=== PATIENT | female | born 1945 | race Caucasian/White ===

== ENCOUNTER 2020-08-31 12:19 | Emergency (ER) | payer MEDICARE ==
[2020-08-31] MEDS ORDERED: PANTOPRAZOLE 40 MG/10 ML VIAL IVP STA (12:58)
[2020-08-31] MEDS ORDERED: SODIUM CHLORIDE 0.9% 1,000 ML IV STA (12:58)
--- NOTE | 2020-08-31 13:00 | ED ---
General Adult HPI - General Chief complaint: Abdominal Pain Stated complaint: lt sided abd pain Time Seen by Provider: 08/31/20 12:39 Source: patient Mode of arrival: ambulatory Limitations: no limitations - History of Present Illness Initial comments: Patient is a pleasant 74-year-old female presenting to the emergency Department with complaints of abdominal discomfort. Onset of symptoms was a couple of days ago. Symptoms have been intermittent. Symptoms are mild at this time and does not need any medication for. Discomfort is left upper abdomen. Patient at times when he gets worse feels warm. Otherwise patient has not had fever. No nausea vomiting. No constipation. Patient has had increase in stools, normally once daily is now 3-4 times daily. No back pain. - Related Data Home Medications Medication Instructions Recorded Confirmed ALPRAZolam [Xanax] 0.25 mg PO HS 10/07/16 10/07/16 Cholecalciferol [Vitamin D3] 1,000 unit PO DAILY 10/07/16 10/07/16 Ibuprofen [Advil] 400 - 600 mg PO Q8HR PRN 10/07/16 10/07/16 Meloxicam [Mobic] 15 mg PO Q72H PRN 10/07/16 10/07/16 Multivitamins, Thera [Multivitamin] 1 tab PO DAILY 10/07/16 10/07/16 Previous Rx's Medication Instructions Recorded Meloxicam [Mobic] 7.5 mg PO DAILY #30 tab 10/07/16 Morphine Sulfate ER [Ms Contin] 15 mg PO Q8H #30 tab 10/07/16 predniSONE 50 mg PO DAILY #5 tab 10/07/16 Allergies Allergy/AdvReac Type Severity Reaction Status Date / Time meperidine [From Demerol] Allergy Severe Anaphylaxis Verified 08/31/20 12:37 Penicillins Allergy Diarrhea Verified 08/31/20 12:37 Review of Systems ROS Statement: Those systems with pertinent positive or pertinent negative responses have been documented in the HPI. ROS Other: All systems not noted in ROS Statement are negative. Constitutional: Denies: fever, chills Eyes: Denies: eye pain ENT: Denies: ear pain Respiratory: Denies: cough Cardiovascular: Denies: chest pain Endocrine: Denies: fatigue Gastrointestinal: Reports: as per HPI, abdominal pain. Denies: nausea, vomiting Genitourinary: Reports: frequency. Denies: dysuria Musculoskeletal: Denies: back pain Skin: Denies: rash Neurological: Denies: weakness Past Medical History Past Medical History: Cancer Additional Past Medical History / Comment(s): chronic back pain thoracic fracture History of Any Multi-Drug Resistant Organisms: None Reported Past Surgical History: Breast Surgery Past Psychological History: No Psychological Hx Reported Smoking Status: Never smoker Past Alcohol Use History: Rare Past Drug Use History: None Reported General Exam Limitations: no limitations General appearance: alert, in no apparent distress Head exam: Present: normocephalic Eye exam: Present: normal appearance Neck exam: Present: normal inspection Respiratory exam: Present: normal lung sounds bilaterally. Absent: chest wall tenderness Cardiovascular Exam: Present: regular rate, normal rhythm Expanded Peripheral pulses: 2+: Radial (R), Radial (L), Dorsalis Pedis (R), Dorsalis Pedis (L) GI/Abdominal exam: Present: soft, tenderness (Mild tenderness left upper quadrant), normal bowel sounds. Absent: distended, guarding, rebound, rigid, p ulsatile mass Extremities exam: Present: normal inspection. Absent: pedal edema, calf tenderness Back exam: Present: normal inspection. Absent: CVA tenderness (R), CVA tenderness (L) Neurological exam: Present: alert Psychiatric exam: Present: normal affect, normal mood Skin exam: Present: normal color Course Vital Signs 08/31/20 08/31/20 12:31 14:00 Temperature 99.3 F Pulse Rate 112 H 71 Respiratory 16 18 Rate Blood Pressure 149/82 156/69 O2 Sat by Pulse 98 98 Oximetry EKG Findings - EKG Comments: EKG Findings:: Rhythm 96. PA 128. QRS 74. QT 336. QTc 424. Normal axis. LVH. Inferior Q waves. No acute ST change. Medical Decision Making - Medical Decision Making Patient reevaluated and resting comfortably in bed. Patient updated on results and need for follow-up as well as concern for renal mass. - Lab Data Result diagrams: 08/31/20 13:08/31/20 13: Lab Results 08/31/20 08/31/20 08/31/20 Range/Units 13:01 13:01 13:01 WBC 7.6 (3.8-10.6) k/uL RBC 5.49 H (3.80-5.40) m/uL Hgb 16.3 H (11.4-16.0) gm/dL Hct 49.3 H (34.0-46.0) % MCV 89.7 (80.0-100.0) fL MCH 29.6 (25.0-35.0) pg MCHC 33.0 (31.0-37.0) g/dL RDW 12.4 (11.5-15.5) % Plt Count 304 (150-450) k/uL MPV 7.0 Neutrophils % 65 % Lymphocytes % 26 % Monocytes % 5 % Eosinophils % 1 % Basophils % 1 % Neutrophils # 4.9 (1.3-7.7) k/uL Lymphocytes # 2.0 (1.0-4.8) k/uL Monocytes # 0.4 (0-1.0) k/uL Eosinophils # 0.1 (0-0.7) k/uL Basophils # 0.1 (0-0.2) k/uL PT 10.8 (9.0-12.0) sec INR 1.1 (<1.2) APTT 26.5 (22.0-30.0) sec Sodium (137-145) mmol/L Potassium (3.5-5.1) mmol/L Chloride (98-107) mmol/L Carbon Dioxide (22-30) mmol/L Anion Gap mmol/L BUN (7-17) mg/dL Creatinine (0.52-1.04) mg/dL Est GFR (CKD-EPI)AfAm (>60 ml/min/1.73 sqM) Est GFR (CKD-EPI)NonAf (>60 ml/min/1.73 sqM) Glucose (74-99) mg/dL Calcium (8.4-10.2) mg/dL Total Bilirubin (0.2-1.3) mg/dL AST (14-36) U/L ALT (4-34) U/L Alkaline Phosphatase (38-126) U/L Troponin I (0.000-0.034) ng/mL Total Protein (6.3-8.2) g/dL Albumin (3.5-5.0) g/dL Amylase (30-110) U/L Lipase (23-300) U/L Urine Color Yellow Urine Appearance Clear (Clear) Urine pH 6.0 (5.0-8.0) Ur Specific Reform 1.017 (1.001-1.035) Urine Protein Negative (Negative) Urine Glucose (UA) Negative (Negative) Urine Ketones Negative (Negative) Urine Blood Trace H (Negative) Urine Nitrite Negative (Negative) Urine Bilirubin Negative (Negative) Urine Urobilinogen <2.0 (<2.0) mg/dL Ur Leukocyte Esterase Moderate H (Negative) Urine RBC 2 (0-5) /hpf Urine WBC 2 (0-5) /hpf Ur Squamous Epith Cells 2 (0-4) /hpf Urine Mucus Few H (None) /hpf 08/31/20 08/31/20 Range/Units 13:01 13:01 WBC (3.8-10.6) k/uL RBC (3.80-5.40) m/uL Hgb (11.4-16.0) gm/dL Hct (34.0-46.0) % MCV (80.0-100.0) fL MCH (25.0-35.0) pg MCHC (31.0-37.0) g/dL RDW (11.5-15.5) % Plt Count (150-450) k/uL MPV Neutrophils % % Lymphocytes % % Monocytes % % Eosinophils % % Basophils % % Neutrophils # (1.3-7.7) k/uL Lymphocytes # (1.0-4.8) k/uL Monocytes # (0-1.0) k/uL Eosinophils # (0-0.7) k/uL Basophils # (0-0.2) k/uL PT (9.0-12.0) sec INR (<1.2) APTT (22.0-30.0) sec Sodium 138 (137-145) mmol/L Potassium 5.0 (3.5-5.1) mmol/L Chloride 106 (98-107) mmol/L Carbon Dioxide 21 L (22-30) mmol/L Anion Gap 11 mmol/L BUN 12 (7-17) mg/dL Creatinine 0.61 (0.52-1.04) mg/dL Est GFR (CKD-EPI)AfAm >90 (>60 ml/min/1.73 sqM) Est GFR (CKD-EPI)NonAf >90 (>60 ml/min/1.73 sqM) Glucose 103 H (74-99) mg/dL Calcium 9.7 (8.4-10.2) mg/dL Total Bilirubin 1.3 (0.2-1.3) mg/dL AST 52 H (14-36) U/L ALT 29 (4-34) U/L Alkaline Phosphatase 74 (38-126) U/L Troponin I <0.012 (0.000-0.034) ng/mL Total Protein 8.2 (6.3-8.2) g/dL Albumin 4.9 (3.5-5.0) g/dL Amylase 57 (30-110) U/L Lipase 84 (23-300) U/L Urine Color Urine Appearance (Clear) Urine pH (5.0-8.0) Ur Specific Reform (1.001-1.035) Urine Protein (Negative) Urine Glucose (UA) (Negative) Urine Ketones (Negative) Urine Blood (Negative) Urine Nitrite (Negative) Urine Bilirubin (Negative) Urine Urobilinogen (<2.0) mg/dL Ur Leukocyte Esterase (Negative) Urine RBC (0-5) /hpf Urine WBC (0-5) /hpf Ur Squamous Epith Cells (0-4) /hpf Urine Mucus (None) /hpf - Radiology Data Radiology results: report reviewed (Computed tomography scan abdomen pelvis shows mass lower pole right kidney, possible renal cell carcinoma. No evidence for metastatic disease. No acute abdominal process) Disposition Clinical Impression: Abdominal pain, Renal mass Disposition: HOME SELF-CARE Condition: Stable Instructions (If sedation given, give patient instructions): Abdominal Pain (ED ) Additional Instructions: Please follow-up with primary care physician in the next day or 2 for recheck. Please also follow-up with urology, number given. Return for increased pain, fevers, worsening change in symptoms or other concerns. Is patient prescribed a controlled substance at d/c from ED?: No Referrals: Ryan Barros MD [Primary Care Provider] - 1-2 days Kobi Hicks MD [STAFF PHYSICIAN] - 1-2 days Time of Disposition: 15:03
[2020-08-31 13:29] LABS: Basophils # (A) 0.1 k/uL (0-0.2); Basophils % (A) 1 %; Eosinophils # (A) 0.1 k/uL (0-0.7); Eosinophils % (A) 1 %; HCT 49.3 % (34.0-46.0); HGB 16.3 gm/dL (11.4-16.0); Lymphocytes % (A) 26 %; MCH 29.6 pg (25.0-35.0); MCV 89.7 fL (80.0-100.0); Monocytes # (A) 0.4 k/uL (0-1.0); Monocytes % (A) 5 %; Neutrophils # (A) 4.9 k/uL (1.3-7.7); Neutrophils % (A) 65 %; Platelet Count 304 k/uL (150-450); RBC 5.49 m/uL (3.80-5.40); RDW 12.4 % (11.5-15.5); WBC 7.6 k/uL (3.8-10.6)
[2020-08-31 13:37] LABS: INR 1.1 (<1.2); Partial Thromboplastin Time 26.5 sec (22.0-30.0); Prothrombin Time 10.8 sec (9.0-12.0)
[2020-08-31 14:00] LABS: ALT 29 U/L (4-34); African American GFR (CKD) >90 (>60 ml/min/1.73 sqM); Albumin 4.9 g/dL (3.5-5.0); Amylase 57 U/L (30-110); Anion Gap 11 mmol/L; Appearance,Urine Clear (Clear); Bilirubin,Urine Negative (Negative); Blood Urea Nitrogen 12 mg/dL (7-17); Blood,Urine Trace (Negative); Calcium 9.7 mg/dL (8.4-10.2); Carbon Dioxide 21 mmol/L (22-30); Chloride 106 mmol/L (98-107); Color,Urine Yellow; Glucose 103 mg/dL (74-99); Glucose,Urine (UA) Negative (Negative); Ketones,Urine Negative (Negative); Leukocyte Esterase,Urine Moderate (Negative); Lipase 84 U/L (23-300); Mucus,Urine Few /hpf; Nitrite,Urine Negative (Negative); Non-African American GFR(CKD) >90 (>60 ml/min/1.73 sqM); Protein,Urine Negative (Negative); RBC,Urine 2 /hpf (0-5); Sodium 138 mmol/L (137-145); Specific Gravity,Urine 1.017 (1.001-1.035); Squamous Epithelial Cell,Urine 2 /hpf (0-4); Total Bilirubin 1.3 mg/dL (0.2-1.3); Total Protein 8.2 g/dL (6.3-8.2); Urobilinogen,Urine <2.0 mg/dL (<2.0); WBC,Urine 2 /hpf (0-5)
[2020-08-31 14:11] VITALS: RESP 18
[2020-08-31 14:14] LABS: AST 52 U/L (14-36); Alkaline Phosphatase 74 U/L (38-126)
--- NOTE | 2020-08-31 14:49 | CT ---
EXAMINATION TYPE: CT abdomen pelvis w con DATE OF EXAM: 08/31/2020 COMPARISON: 09/27/2013 HISTORY: LUQ pain CT DLP: 1454 mGycm CONTRAST: CT scan of the abdomen and pelvis is performed without Oral Contrast and with IV Contrast, patient in jected with 100 mL of Isovue 300. FINDINGS: LUNG BASES-: No visible nodule. No infiltrate. LIVER/GB: No calcified gallstones. Fatty liver. Simple cyst posterior segment right hepatic lobe. B iliary tree is of normal caliber. PANCREAS: No inflammation. No distinct mass. SPLEEN: No splenic enlargement. No lesion seen. ADRENALS: No nodule. No thickening. KIDNEYS/BLADDER: No hydronephrosis. No nephrolithiasis. There is an mass lower pole right kidney me asuring 3.9 by approximately 3.1 cm with central necrosis. This is felt to reflect renal cell carcino ma until proven otherwise. Parapelvic cysts are noted bilaterally. Urinary bladder grossly unremarkab le. BOWEL: Normal appendix. Normal bowel caliber. No inflammation. Sliding-type hiatal hernia noted. GENITAL ORGANS: No gross abnormality. LYMPH NODES: No greater than 1cm abdominal or pelvic lymph nodes are appreciated. AORTA: No significant abnormality. OSSEOUS STRUCTURES: Superior endplate compression fracture of L1 appears to be nonacute. Mild bony re tropulsion is noted measuring 3.8 cm. OTHER: No significant additional abnormality is seen. IMPRESSION: 1. Mass lower pole right kidney is felt to reflect renal cell carcinoma until proven otherwise. Genit ourinary consult recommended. No definite evidence for metastatic disease on this examination. 2. Mild fatty liver. 3. No acute intra-abdominal process. 4. Chronic appearing superior endplate fracture of L1.
[2020-08-31 15:44] VITALS: BP 180/100; PULSE 102; TEMP 98.8
== END 2020-08-31 15:44 | disposition home or self-care (01) ==
LOC: EC 12:19
DX: N28.89 Other specified disorders of kidney and ureter (principal); Z79.899 Other long term (current) drug therapy; Z88.0 Allergy status to penicillin; Z88.5 Allergy status to narcotic agent
CPT/HCPCS: 36415; 93005; 80053; 82150; 83690; 84484; 85025; 85610; 85730; 81001; 74177; 99284; 96374; 96361 ×2; C9113; Q9967

== ENCOUNTER → 2020-10-26 | Outpatient (CLI) | payer MEDICARE ==
[2020-10-26 16:21] LABS: Appearance,Urine Cloudy (Clear); Bacteria,Urine Occasional /hpf; Bilirubin,Urine Negative (Negative); Blood,Urine Negative (Negative); Calcium Oxalate Crystals,Urine Rare /hpf; Color,Urine Yellow; Glucose,Urine (UA) Negative (Negative); Ketones,Urine Negative (Negative); Leukocyte Esterase,Urine Moderate (Negative); Mucus,Urine Rare /hpf; Nitrite,Urine Negative (Negative); Protein,Urine Negative (Negative); RBC,Urine 2 /hpf (0-5); Specific Gravity,Urine 1.018 (1.001-1.035); Squamous Epithelial Cell,Urine 4 /hpf (0-4); Urobilinogen,Urine <2.0 mg/dL (<2.0); WBC,Urine 14 /hpf (0-5)
--- NOTE | 2020-10-26 17:24 | XR ---
EXAMINATION TYPE: XR chest 2V DATE OF EXAM: 10/26/2020 COMPARISON: None HISTORY: 75-year-old female Z01.818 TECHNIQUE: Frontal and lateral views FINDINGS: Heart normal size. There may be some ectasia of the ascending aorta. Some strandy atelectasis or scar at the left base. No consolidation or pleural effusion. Mild degenerative disc disease and thoracic spine. IMPRESSION: There may be some ectasia or elongation of the ascending aorta. Otherwise, no acute process seen.
== END | disposition home or self-care (01) ==
LOC: LABPAT 14:48
PROVIDERS: ATTEND Urology
DX: Z01.818 Encounter for other preprocedural examination (principal); D41.01 Neoplasm of uncertain behavior of right kidney; R31.0 Gross hematuria
CPT/HCPCS: 71046; 81001; 87086

== ENCOUNTER 2020-11-02 06:17 | Inpatient (IN) | payer MEDICARE ==
[2020-10-25 08:45] VITALS: BMI 32.8
--- NOTE | 2020-10-31 22:16 | P.HPIHPCON ---
History of Present Illness H&P Date: 11/02/20 Chief Complaint: right renal mass Ms Ramirez is a 75 yo female with hx of 3.9 cm right sided renal mass in the lower pole of kidney. Discussed with her review of image is concerning for renal cell carcinoma. The option of robotic radical vs partial nephrectomy was discussed with her. Risk and benefit of each approach were discussed with her. She agreed to proceed with robotic partial nephrectomy. Discussed risk of bleeding, infection, injury to nearby organ, potential of conversion to radical nephrectomy. Discussed potential need for dialysis if radical nephrectomy is performed. I also discussed with her the risk from anesthesia. She understood all the risk and agreed to proceed. Consent for Procedure: I have explained the operation/procedure to the patient, including the risks, benefits, side effects, alternative therapies (including not receiving the proposed treatment or service), the likelihood of the patient achieving his/her goals, and potential recuperation problems for the procedure/sedation/analgesia, as well as any blood products, if indicated. I also explained to the patient the risks, benefits and side effects of the alternatives, as well as the risks related to not receiving the proposed procedure, care, treatment, or services. 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,chronic back pain thoracic fracture,left breast CA-radiation received 2013,palpitations History of Any Multi-Drug Resistant Organisms: None Reported Past Surgical History: Breast Surgery, Joint Replacement Additional Past Surgical History / Comment(s): rt knee replaced, lt lumpectomy Past Anesthesia/Blood Transfusion Reactions: No Reported Reaction Additional Past Anesthesia/Blood Transfusion Reaction / Comment(s): no hx blood transfusions Smoking Status: Never smoker - Past Family History Mother Family Medical History: Cancer Father Family Medical History: Cancer Medications and Allergies Home Medications Medication Instructions Recorded Confirmed Type ALPRAZolam [Xanax] 0.25 mg PO BID PRN 10/07/16 10/25/20 History Cholecalciferol [Vitamin D3] 4,000 unit PO DAILY 10/07/16 10/25/20 History Benazepril HCl [Lotensin] 10 mg PO BID 10/25/20 10/25/20 History Omeprazole 20 mg PO DAILY PRN 10/25/20 10/25/20 History Rosuvastatin Calcium [Crestor] 5 mg PO DAILY 10/25/20 10/25/20 History Allergies Allergy/AdvReac Type Severity Reaction Status Date / Time meperidine [From Demerol] Allergy Severe Anaphylaxis Verified 10/25/20 08:18 Penicillins Allergy Diarrhea Verified 10/25/20 08:18 Surgical - Exam - General well developed, well nourished, no distress - Eyes PERRL, normal ocular movement - Respiratory normal expansion, normal respiratory effort Assessment and Plan Assessment: 75 yo female with hx of right renal mass -OR for robotic partial nephrectomy possible radical on right
[~2020-11-02 06:17] MED LIST: CLINDAMYCIN 600 MG in DEXTROSE 5% IN WATER 50 ML IVPB PRN; GENTAMICIN 120 MG in SODIUM CHLORIDE 0.9% 100 ML IVPB PRN
[2020-11-02] MEDS ORDERED: LACTATED RINGERS 1,000 ML IV ONE ×4 (07:21→11:15)
[2020-11-02] MEDS ORDERED: LIDOCAINE 1% (10MG/ML) FOR IV START INTRADERMA ONE (07:22)
[2020-11-02] MEDS: ONDANSETRON 4 MG/2 ML VIAL ONE ×2 (07:23→14:00)
[2020-11-02] MEDS ORDERED: DEXAMETHASONE SOD PHOSPHATE 4 MG/ML 1 ML VIAL IV ONE (07:23)
[2020-11-02] MEDS ORDERED: MIDAZOLAM 2 MG/2 ML VIAL IV ONE (07:23)
[2020-11-02] MEDS ORDERED: ROCURONIUM 10 MG/ML (10 ML VIAL) IV ONE (07:30)
[2020-11-02] MEDS ORDERED: NEOSTIGMINE 1 MG/ML 10 ML VIAL ONE (07:30)
[2020-11-02] MEDS ORDERED: LIDOCAINE 1% INJ 10MG/ML (20 ML MDV) ONE (07:30)
[2020-11-02] MEDS ORDERED: MANNITOL 25% 12.5 GM/50 ML VIAL ONE (07:30)
[2020-11-02] MEDS ORDERED: PHENYLEPHRINE 10 MG/ML VIAL ONE (07:30)
[2020-11-02] MEDS ORDERED: GLYCOPYRROLATE 0.2 MG/ML 2 ML VIAL ONE (07:30)
[2020-11-02] MEDS ORDERED: PROPOFOL 10 MG/ML 20 ML VIAL IV ONE (07:30)
[2020-11-02] MEDS ORDERED: HYDROmorphone (PF) 1 MG/ML ONE (07:30)
[2020-11-02] MEDS ORDERED: MIDAZOLAM 2 MG/2 ML VIAL ONE (07:30)
[2020-11-02] MEDS ORDERED: fentaNYL (PF) 50 MCG/ML 2 ML AMP ONE (07:30)
[2020-11-02] MEDS ORDERED: SUCCINYLCHOLINE CHLORIDE 100 MG/5 ML SYR IV ONE (07:30)
[2020-11-02] MEDS ORDERED: PANTOPRAZOLE 40 MG TABLET PO PRN (07:44)
--- NOTE | 2020-11-02 12:01 | P.OP ---
Date of Procedure: 11/02/20 Preoperative Diagnosis: right renal tumor Postoperative Diagnosis: same Procedure(s) Performed: Robotic-assisted laparoscopic partial nephrectomy on the right, and intraoperative ultrasound Implants: none Anesthesia: STEPH Surgeon: Kobi Hicks Estimated Blood Loss (ml): 50 Pathology: other (Right renal tumor) Condition: stable Disposition: PACU Indications for Procedure: Ms Ramirez is a 75 yo female with hx of 3.9 cm right sided renal mass in the lower pole of kidney. Discussed with her review of image is concerning for renal cell carcinoma. The option of robotic radical vs partial nephrectomy was discussed with her. Risk and benefit of each approach were discussed with her. She agreed to proceed with robotic partial nephrectomy. Discussed risk of bleeding, infection, injury to nearby organ, potential of conversion to radical nephrectomy. Discussed potential need for dialysis if radical nephrectomy is performed. I also discussed with her the risk from anesthesia. She understood all the risk and agreed to proceed Operative Findings: Large right renal tumor Description of Procedure: The patient was taken to the operating room . General anesthesia was induced. She was prepped and draped in sterile fashion, and was placed in modified flank position . All pressure points were padded. The abdominal insufflation was achieved with the Veress needle. A 8 mm camera port was placed. Robotic trocars and licensed occupational therapy assistant ports were placed under direct vision. a 5 mm liver retractor was placed. Of note patient had significant adhesions along the lower quadrant, but was able to place the ports without taking down the adhesions. The robot was docked into place. The colon was mobilized medially by incising along the white line of Toldt. Next the duodenum was kocherized. At this time the vena cava was exposed. Next the ureter was retracted anteriorly off the psoas muscle. Dissection proceeded cranially towards the renal hilum. At this point the renal artery and the vein were dissected. There was a single artery and vein. The vessels were dissected in preparation for clamping. Next the introitus fat over the kidney was incised, and the fat was mobilized along the mid and lower pole, exposing the tumor. Using the intraoperative ultrasound the depths and the edges of the tumor were marked. Next the vessels were clamped, using 2 bulldogs on the artery and a single bulldog on the vein. Next attention was carried to the tumor the tumor was enucleated sharply using the monopolar scissors. Of note there was too small tumor thrombus, extending into the intrarenal veins, those were removed and sent with the specimen. Of note the tumor was also in close proximity to the collecting system, there was a small entry into the collecting system. After the tumor was excised the collecting system was repaired using 4-0 Vicryl. The tumor bed was closed in 2 layers using 3-0V lock for the deep layer and 2-0 V lock for the outer layer using the sliding clip technique. At this time the clamps were removed, there was no evidence of bleeding. Hemostatic agent were applied to the tumor. A 10-Armenian OTONIEL was placed through the progress. The drain was secured using 2-0 silk. The robot was then de-docked and the specimen was then removed by extending the licensed occupational therapy assistant port. Fascia was closed with one layer using 0 Vicryl Skin was closed with subcuticular sutures and dermabond. The patient was awoken from general anesthesia in stable condition. Please refer to the final pathology report for final diagnosis
[2020-11-02] MEDS: HYDROmorphone 1 MG/ML 1 ML SYRINGE IVP ONE ×2 (12:18→12:23)
[2020-11-02] MEDS: KETOROLAC 15 MG/ML 1 ML VIAL IVP SCH ×3 (12:19→23:10)
[2020-11-02] MEDS: ATORVASTATIN 10 MG TAB PO SCH (14:49)
[2020-11-02] MEDS: HEPARIN SODIUM,PORCINE 5,000 UNIT/ML 1 ML VIAL SQ SCH ×3 (14:49→23:10)
[2020-11-02] MEDS: lisinopriL 20 MG TAB PO SCH (14:50)
[2020-11-02] MEDS: D5-0.45% NACL WITH KCL 20MEQ/L 1,000 ML IV SCH (15:50)
[2020-11-02] MEDS ORDERED: ARTIFICIAL TEARS-HYPROMELLOSE DROPS 15 ML BTL BOTH EYES PRN (18:59)
[2020-11-02] MEDS: ALPRAZolam 0.25 MG TAB PO PRN (23:11)
[2020-11-03] MEDS: HYDROcodone/APAP 5-325MG 1 EACH TAB PO PRN ×5 (00:37→19:47)
[2020-11-03] MEDS: KETOROLAC 15 MG/ML 1 ML VIAL IVP SCH ×4 (05:12→23:48)
[2020-11-03] MEDS: D5-0.45% NACL WITH KCL 20MEQ/L 1,000 ML IV SCH ×4 (05:12→23:03)
[2020-11-03 06:02] LABS: Glucose,Whole Blood 130 mg/dL (75-99)
[2020-11-03 06:28] LABS: HCT 43.8 % (34.0-46.0); HGB 13.9 gm/dL (11.4-16.0); MCH 29.2 pg (25.0-35.0); MCHC 31.7 g/dL (31.0-37.0); Mean Platelet Volume 7.2; Platelet Count 257 k/uL (150-450); RBC 4.76 m/uL (3.80-5.40); WBC 11.4 k/uL (3.8-10.6)
[2020-11-03] MEDS: lisinopriL 20 MG TAB PO SCH (09:22)
[2020-11-03] MEDS: HEPARIN SODIUM,PORCINE 5,000 UNIT/ML 1 ML VIAL SQ SCH ×3 (09:22→23:50)
[2020-11-03] MEDS: ATORVASTATIN 10 MG TAB PO SCH (09:22)
[2020-11-03 09:37] LABS: African American GFR (CKD) 85 (>60 ml/min/1.73 sqM); Anion Gap 2 mmol/L; Blood Urea Nitrogen 14 mg/dL (7-17); Calcium 9.1 mg/dL (8.4-10.2); Carbon Dioxide 29 mmol/L (22-30); Chloride 107 mmol/L (98-107); Glucose 140 mg/dL (74-99); Non-African American GFR(CKD) 74 (>60 ml/min/1.73 sqM); Potassium 4.7 mmol/L (3.5-5.1); Sodium 138 mmol/L (137-145)
--- NOTE | 2020-11-03 11:12 | P.PN ---
Subjective Progress Note Date: 11/03/20 Principal diagnosis: POD #1, s/p robotic-assisted laparoscopic right partial nephrectomy The patient experienced right-sided chest pain with deep inspiration earlier this morning. However, she is now sitting upright in a chair and states that this has resolved. Her oxygen saturation level was normal. She denies nausea and tolerated breakfast in small amounts. Objective - Vital Signs Vital signs: Vital Signs Temp 98.5 F 11/03/20 08:00 Pulse 69 11/03/20 08:00 Resp 17 11/03/20 08:00 BP 146/76 11/03/20 08:00 Pulse Ox 97 11/03/20 09:25 Intake & Output 11/02/20 11/03/20 11/03/20 18:59 06:59 18:59 Intake Total 2303 Output Total 500 1945 10 Balance 180 -1944 Weight 90.718 kg Intake: IV 2303 Output: Drainage 45 10 Abdomen 45 10 Urine 450 1900 Estimated Blood Loss 50 Other: Voiding Method Indwelling Catheter Indwelling Catheter - Constitutional General appearance: Present: average body habitus, no acute distress - Gastrointestinal Gastrointestinal Comment(s): Soft, non-distended. Incisions clean, dry, and intact. Renteria catheter is draining clear yellow urine. OTONIEL drainage is minimal. - Psychiatric Psychiatric: Present: A&O x's 3 - Labs CBC & Chem 7: 11/03/20 05:44 11/03/20 05:44 Labs: Abnormal Lab Results - Last 24 Hours (Table) 11/03/20 11/03/20 11/03/20 Range/Units 05:44 05:44 05:52 WBC 11.4 H (3.8-10.6) k/uL Glucose 140 H (74-99) mg/dL POC Glucose (mg/dL) 130 H (75-99) mg/dL Assessment and Plan (1) Neoplasm of unspecified behavior of right kidney Current Visit: Yes Status: Acute Code(s): D49.511 - NEOPLASM OF UNSPECIFIED BEHAVIOR OF RIGHT KIDNEY SNOMED Code(s): 87179537268662294 Plan: The patient's condition is felt to be stable. She was advised to increase diet as tolerated. Ambulation is encouraged. The Renteria catheter and OTONIEL drain will remain in place.
[2020-11-03] MEDS: ALPRAZolam 0.25 MG TAB PO PRN (22:06)
[2020-11-04] MEDS: KETOROLAC 15 MG/ML 1 ML VIAL IVP SCH ×2 (05:59→12:19)
[2020-11-04] MEDS: HYDROcodone/APAP 5-325MG 1 EACH TAB PO PRN ×2 (06:05→13:23)
[2020-11-04 09:09] VITALS: BP 160/81; PULSE 82; RESP 18; TEMP 97.9
[2020-11-04] MEDS: lisinopriL 20 MG TAB PO SCH (09:16)
[2020-11-04] MEDS: HEPARIN SODIUM,PORCINE 5,000 UNIT/ML 1 ML VIAL SQ SCH (09:16)
[2020-11-04] MEDS: ATORVASTATIN 10 MG TAB PO SCH (09:16)
--- NOTE | 2020-11-04 09:54 | P.DS ---
Providers Date of admission: 11/02/20 06:17 Expected date of discharge: 11/04/20 Attending physician: Kobi Hicks MD Primary care physician: Stated None - Discharge Diagnosis(es) (1) Neoplasm of unspecified behavior of right kidney Current Visit: Yes Status: Acute Hospital Course: On the day of admission, the patient underwent a robotic-assisted laparoscopic right partial nephrectomy on 11/02/2020. The perioperative course was unremarkable. She remained afebrile with stable vital signs. The Renteria catheter was draining clear yellow urine, and OTONIEL drainage was minimal. At the time of discharge, she was tolerating regular diet and ambulating without difficulty. Her pain was controlled with [place]. The Renteria catheter and OTONIEL drain were removed prior to discharge. Procedures: Robotic-assisted laparoscopic right partial nephrectomy in 11/02/2020 Patient Condition at Discharge: Good Plan - Discharge Summary Discharge Rx Participant: Yes New Discharge Prescriptions: New HYDROcodone/APAP 5-325MG [[place] 5-325] 1 tab PO Q4HR PRN 3 Days #12 tab PRN Reason: Moderate To Severe Pain No Action Cholecalciferol [Vitamin D3] 4,000 unit PO DAILY ALPRAZolam [Xanax] 0.25 mg PO BID PRN PRN Reason: Anxiety Benazepril HCl [Lotensin] 10 mg PO BID Rosuvastatin Calcium [Crestor] 5 mg PO DAILY Omeprazole 20 mg PO DAILY PRN PRN Reason: gerd Discharge Medication List ALPRAZolam [Xanax] 0.25 mg PO BID PRN 10/07/16 [History] Cholecalciferol [Vitamin D3] 4,000 unit PO DAILY 10/07/16 [History] Benazepril HCl [Lotensin] 10 mg PO BID 10/25/20 [History] Omeprazole 20 mg PO DAILY PRN 10/25/20 [History] Rosuvastatin Calcium [Crestor] 5 mg PO DAILY 10/25/20 [History] HYDROcodone/APAP 5-325MG [[place] 5-325] 1 tab PO Q4HR PRN 3 Days #12 tab 11/04/20 [Rx] Follow up Appointment(s)/Referral(s): Kobi Hicks MD [STAFF PHYSICIAN] - 11/09/20 Activity/Diet/Wound Care/Special Instructions: Diet as tolerated. Okay to shower on 11/06/2020. No lifting, driving, or strenuous activity. Discharge Disposition: HOME SELF-CARE
[2020-11-04] MEDS: D5-0.45% NACL WITH KCL 20MEQ/L 1,000 ML IV SCH (10:26)
== END 2020-11-04 13:37 | disposition home or self-care (01) | DRG 658 ==
LOC: 2ORMAIN 06:17 → 4SSUR 13:50
PROVIDERS: ADMIT Urology; ATTEND Urology
PROC: 8E0W4CZ Robotic Assisted Procedure of Trunk Region, Percutaneous Endoscopic Approach (ICD-10-PCS; 2020-11-02)
PROC: 0TB04ZZ Excision of Right Kidney, Percutaneous Endoscopic Approach (ICD-10-PCS; principal; 2020-11-02 07:30)
DX: C64.1 Malignant neoplasm of right kidney, except renal pelvis (principal); E78.5 Hyperlipidemia, unspecified; I10 Essential (primary) hypertension; G89.29 Other chronic pain; M54.9 Dorsalgia, unspecified; Z96.651 Presence of right artificial knee joint; Z88.5 Allergy status to narcotic agent; Z88.0 Allergy status to penicillin; Z79.899 Other long term (current) drug therapy; Z85.3 Personal history of malignant neoplasm of breast; Z98.890 Other specified postprocedural states; Z92.3 Personal history of irradiation; Z80.9 Family history of malignant neoplasm, unspecified
CPT/HCPCS: 80048; 85027; 86850; 86900; 86901; 88307

== ENCOUNTER → 2021-04-25 | Outpatient (CLI) | payer MEDICARE ==
[2021-04-25 12:43] LABS: African American GFR (CKD) >90 (>60 ml/min/1.73 sqM); Blood Urea Nitrogen 15 mg/dL (7-17); Non-African American GFR(CKD) 88 (>60 ml/min/1.73 sqM)
--- NOTE | 2021-04-25 13:40 | CT ---
EXAMINATION TYPE: CT abdomen wo/w con DATE OF EXAM: 04/25/2021 COMPARISON: 08/31/2020 INDICATION: Neoplasm of kidney with tumor removal. DLP: 1784 mGycm, Automated exposure control for dose reduction was used. CONTRAST: 100 mL of Isovue M300. Study performed with Oral Contrast TECHNIQUE: Axial images were obtained from above the diaphragm to the pubic rami in the axial plane a t 5 mm thick sections. Reconstructed images are reviewed on the computer in the coronal plane. FINDINGS: Limited CT sections are obtained the lung bases. The lung bases are clear. Small hiatal hernia is p resent. CT ABDOMEN: Liver: There is a cyst within the posterior right lobe liver present previously. Spleen: Normal Pancreas: Normal Adrenal glands: The adrenal glands are normal. Gallbladder: Normal Kidneys: No masses are evident. There is been resection of a prior inferior pole right renal mass. So me surgical changes evident at this level. Note is made of a 0.3 cm calcification in the mid right ki dney without obstruction. Peripelvic cysts may be present bilaterally. Aorta: Vascular calcification is within the aorta. Inferior vena cava: Normal. CT PELVIS: Loops of bowel within the abdomen and pelvis are normal. There are loops of bowel which are incom pletely distended or lack oral contrast limiting their evaluation. Appendix: Normal as visualized. Urinary bladder: Normal. Genitourinary structures: Osseous structures: No suspicious lytic or sclerotic lesions. Loops of bowel with contrast are unremarkable. Fecal debris is within the colon. IMPRESSIONS: 1. No recurrent right renal masses. Postsurgical changes within the right kidney. 2. Nonobstructing punctate right renal stone. 3. Hepatic cyst. 4. Peripelvic cysts
--- NOTE | 2021-04-25 14:41 | XR ---
EXAMINATION TYPE: XR chest 2V DATE OF EXAM: 04/25/2021 COMPARISON: 10/26/2020 HISTORY: Kidney neoplasm TECHNIQUE: Frontal and lateral views of the chest are obtained. FINDINGS: There is a linear density in the left lung base, unchanged and likely representing scarring. Cardiac silhouette is enlarged. IMPRESSION: No acute cardiopulmonary process.
== END | disposition home or self-care (01) ==
LOC: RADCTMAIN 11:59
PROVIDERS: ATTEND Urology
DX: J98.4 Other disorders of lung (principal); N20.0 Calculus of kidney; K76.89 Other specified diseases of liver; N28.1 Cyst of kidney, acquired; Z85.528 Personal history of other malignant neoplasm of kidney
CPT/HCPCS: 82565; 84520; 71046; 74170; 36415; Q9967 ×2

== ENCOUNTER 2021-08-04 14:03 | Emergency (ER) | payer MEDICARE ==
[2021-08-04 15:30] LABS: Appearance,Urine Cloudy (Clear); Bacteria,Urine Occasional /hpf; Bilirubin,Urine Negative (Negative); Blood,Urine Large (Negative); Color,Urine Yellow; Glucose,Urine (UA) Negative (Negative); Ketones,Urine Negative (Negative); Leukocyte Esterase,Urine Large (Negative); Mucus,Urine Rare /hpf; Nitrite,Urine Positive (Negative); PH, Urine 5.5 (5.0-8.0); Protein,Urine 1+ (Negative); RBC,Urine >182 /hpf (0-5); Specific Gravity,Urine 1.009 (1.001-1.035); Squamous Epithelial Cell,Urine 1 /hpf (0-4); Urobilinogen,Urine <2.0 mg/dL (<2.0); WBC,Urine >182 /hpf (0-5)
[2021-08-04] MEDS ORDERED: ACETAMINOPHEN TAB 500 MG TAB PO STA (15:38)
[2021-08-04] MEDS ORDERED: SODIUM CHLORIDE 0.9% 1,000 ML IV SCH (15:45)
[2021-08-04 16:01] LABS: Basophils # (A) 0.1 k/uL (0-0.2); Basophils % (A) 1 %; Eosinophils # (A) 0.1 k/uL (0-0.7); Eosinophils % (A) 1 %; HCT 46.8 % (34.0-46.0); HGB 15.6 gm/dL (11.4-16.0); Lymphocytes # (A) 0.8 k/uL (1.0-4.8); Lymphocytes % (A) 8 %; MCH 30.9 pg (25.0-35.0); MCHC 33.3 g/dL (31.0-37.0); MCV 92.9 fL (80.0-100.0); Mean Platelet Volume 7.1; Monocytes # (A) 0.4 k/uL (0-1.0); Monocytes % (A) 4 %; Neutrophils # (A) 8.3 k/uL (1.3-7.7); Neutrophils % (A) 85 %; Platelet Count 276 k/uL (150-450); RBC 5.04 m/uL (3.80-5.40); RDW 12.2 % (11.5-15.5); WBC 9.8 k/uL (3.8-10.6)
[2021-08-04 16:09] LABS: ALT 23 U/L (4-34); AST 29 U/L (14-36); African American GFR (CKD) >90 (>60 ml/min/1.73 sqM); Albumin 4.5 g/dL (3.5-5.0); Alkaline Phosphatase 75 U/L (38-126); Anion Gap 9 mmol/L; Blood Urea Nitrogen 14 mg/dL (7-17); Calcium 9.6 mg/dL (8.4-10.2); Carbon Dioxide 26 mmol/L (22-30); Chloride 101 mmol/L (98-107); Glucose 101 mg/dL (74-99); Non-African American GFR(CKD) 89 (>60 ml/min/1.73 sqM); Potassium 3.9 mmol/L (3.5-5.1); Sodium 136 mmol/L (137-145); Total Bilirubin 0.9 mg/dL (0.2-1.3); Total Protein 7.5 g/dL (6.3-8.2)
[2021-08-04] MEDS ORDERED: cefTRIAXone IN SWFI 1,000 MG/10 ML SYRINGE IVP STA (17:10)
--- NOTE | 2021-08-04 17:18 | US ---
EXAMINATION TYPE: US renals and bladder DATE OF EXAM: 08/04/2021 COMPARISON: CT 2020 CLINICAL HISTORY: renal cancer hx, hematuria. EXAM MEASUREMENTS: Right Kidney: 11.7 x 5.1 x 5.0 cm Left Kidney: 12.5 x 5.0 x 5.0 cm Post Void Residual Volume: 22.6 mL Right Kidney: No hydronephrosis or masses seen Left Kidney: 2.3cm anechoic area medial mid pole Bladder: not fully distended, patient voided just prior to scan Bilateral Jets seen: no Normal Post Void Residual: yes IMPRESSION: No hydronephrosis. Left renal cyst is noted. Post void estimated bladder volume is 23 mL. No evidence of a solid renal mass.
[2021-08-04] MEDS ORDERED: PHENAZOPYRIDINE 200 MG TAB PO STA (17:32)
--- NOTE | 2021-08-04 17:36 | ED ---
Female Urogenital HPI - General Chief complaint: Urogenital Stated complaint: Blood in Urine Source: patient Mode of arrival: ambulatory Limitations: no limitations - History of Present Illness Initial comments: 75-year-old female with past nuchal history of renal cell cancer, partial nephrectomy presents emergency Department with reported hematuria. Patient states that starting yesterday she began having large blood clots in her urine. She has had increased frequency of urination as well. She did have surgery back in October. Had a partial nephrectomy and was found to have renal cell cancer. She is followed by Dr. Hicks. States she has associated suprapubic discomfort. No nausea, vomiting or diarrhea. No abnormal vaginal bleeding or discharge. Patient arrives to the hospital and is found to have a fever. Has not taken anything for fever control today. She denies any chest pain, shortness of breath, headache. She did receive her Covid booster yesterday. No other alleviating, precipitating or modifying factors - Related Data Home Medications Medication Instructions Recorded Confirmed ALPRAZolam [Xanax] 0.125 mg PO HS PRN 10/07/16 08/04/21 Benazepril HCl [Lotensin] 10 mg PO BID 10/25/20 08/04/21 Rosuvastatin Calcium [Crestor] 5 mg PO HS 10/25/20 08/04/21 Multivitamins, Thera [Multivitamin 1 tab PO DAILY 08/04/21 08/04/21 (formulary)] Previous Rx's Medication Instructions Recorded Cephalexin [Keflex] 500 mg PO BID 1 Days #14 cap 08/04/21 Phenazopyridine [Pyridium] 200 mg PO TID #6 tablet 08/04/21 Allergies Allergy/AdvReac Type Severity Reaction Status Date / Time meperidine [From Demerol] Allergy Severe Anaphylaxis Verified 08/04/21 17:19 Penicillins Allergy Diarrhea Verified 08/04/21 17:19 Review of Systems ROS Statement: Those systems with pertinent positive or pertinent negative responses have been documented in the HPI. ROS Other: All systems not noted in ROS Statement are negative. 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,chronic back pain thoracic fracture,left breast CA-radiation received 2013,palpitations History of Any Multi-Drug Resistant Organisms: None Reported Past Surgical History: Breast Surgery, Joint Replacement Additional Past Surgical History / Comment(s): rt knee replaced, lt lumpectomy Past Anesthesia/Blood Transfusion Reactions: No Reported Reaction Additional Past Anesthesia/Blood Transfusion Reaction / Comment(s): no hx blood transfusions Past Psychological History: Anxiety Smoking Status: Never smoker Past Alcohol Use History: Rare Past Drug Use History: None Reported - Past Family History Mother Family Medical History: Cancer Father Family Medical History: Cancer General Exam Limitations: no limitations Course Vital Signs 08/04/21 08/04/21 08/04/21 14:42 16:59 17:46 Temperature 100.3 F H 99.3 F Pulse Rate 109 H 103 H 100 Respiratory 16 18 16 Rate Blood Pressure 147/80 171/72 144/84 O2 Sat by Pulse 97 99 96 Oximetry Medical Decision Making - Medical Decision Making Upon arrival patient is placed into room 14. A thorough history and physical exam was performed. IV is established the patient is started on gentle fluids. Patient does not want high IV fluids and she states that she does not want have to use the restroom. Laboratory studies were conducted and a renal ultrasound was performed. Laboratory studies are reviewed. Hemoglobin 15.6. Kidney function is 0.6. Urinalysis is positive for nitrates, large blood, greater than 182 red blood cells and white blood cells. Many white blood cell clumps with occasional bacteria. Patient is given a dose of Pyridium and 1 g of Rocephin. Ultrasound is performed of the bladder and kidneys. Demonstrates a left renal cyst. Post void estimated bladder volume is 23 mL. No evidence of solid renal mass. Patient is reevaluated. Temp and heart rate are improved. Patient will be discharged home at this time on Keflex and Pyridium. Instructed follow up with primary care doctor to 4 days. Return to emergency room for any new or worsening symptoms. Patient was discharged home in stable condition - Lab Data Result diagrams: 08/04/21 15:42 08/04/21 15:42 Lab Results 08/04/21 08/04/21 08/04/21 Range/Units 15:13 15:42 15:42 WBC 9.8 (3.8-10.6) k/uL RBC 5.04 (3.80-5.40) m/uL Hgb 15.6 (11.4-16.0) gm/dL Hct 46.8 H (34.0-46.0) % MCV 92.9 (80.0-100.0) fL MCH 30.9 (25.0-35.0) pg MCHC 33.3 (31.0-37.0) g/dL RDW 12.2 (11.5-15.5) % Plt Count 276 (150-450) k/uL MPV 7.1 Neutrophils % 85 % Lymphocytes % 8 % Monocytes % 4 % Eosinophils % 1 % Basophils % 1 % Neutrophils # 8.3 H (1.3-7.7) k/uL Lymphocytes # 0.8 L (1.0-4.8) k/uL Monocytes # 0.4 (0-1.0) k/uL Eosinophils # 0.1 (0-0.7) k/uL Basophils # 0.1 (0-0.2) k/uL Sodium 136 L (137-145) mmol/L Potassium 3.9 (3.5-5.1) mmol/L Chloride 101 (98-107) mmol/L Carbon Dioxide 26 (22-30) mmol/L Anion Gap 9 mmol/L BUN 14 (7-17) mg/dL Creatinine 0.65 (0.52-1.04) mg/dL Est GFR (CKD-EPI)AfAm >90 (>60 ml/min/1.73 sqM) Est GFR (CKD-EPI)NonAf 89 (>60 ml/min/1.73 sqM) Glucose 101 H (74-99) mg/dL Plasma Lactic Acid Abel (0.7-2.0) mmol/L Calcium 9.6 (8.4-10.2) mg/dL Total Bilirubin 0.9 (0.2-1.3) mg/dL AST 29 (14-36) U/L ALT 23 (4-34) U/L Alkaline Phosphatase 75 (38-126) U/L Total Protein 7.5 (6.3-8.2) g/dL Albumin 4.5 (3.5-5.0) g/dL Urine Color Yellow Urine Appearance Cloudy H (Clear) Urine pH 5.5 (5.0-8.0) Ur Specific Walden 1.009 (1.001-1.035) Urine Protein 1+ H (Negative) Urine Glucose (UA) Negative (Negative) Urine Ketones Negative (Negative) Urine Blood Large H (Negative) Urine Nitrite Positive H (Negative) Urine Bilirubin Negative (Negative) Urine Urobilinogen <2.0 (<2.0) mg/dL Ur Leukocyte Esterase Large H (Negative) Urine RBC >182 H (0-5) /hpf Urine WBC >182 H (0-5) /hpf Urine WBC Clumps Many H (None) /hpf Ur Squamous Epith Cells 1 (0-4) /hpf Urine Bacteria Occasional H (None) /hpf Urine Mucus Rare H (None) /hpf 08/04/21 Range/Units 15:42 WBC (3.8-10.6) k/uL RBC (3.80-5.40) m/uL Hgb (11.4-16.0) gm/dL Hct (34.0-46.0) % MCV (80.0-100.0) fL MCH (25.0-35.0) pg MCHC (31.0-37.0) g/dL RDW (11.5-15.5) % Plt Count (150-450) k/uL MPV Neutrophils % % Lymphocytes % % Monocytes % % Eosinophils % % Basophils % % Neutrophils # (1.3-7.7) k/uL Lymphocytes # (1.0-4.8) k/uL Monocytes # (0-1.0) k/uL Eosinophils # (0-0.7) k/uL Basophils # (0-0.2) k/uL Sodium (137-145) mmol/L Potassium (3.5-5.1) mmol/L Chloride (98-107) mmol/L Carbon Dioxide (22-30) mmol/L Anion Gap mmol/L BUN (7-17) mg/dL Creatinine (0.52-1.04) mg/dL Est GFR (CKD-EPI)AfAm (>60 ml/min/1.73 sqM) Est GFR (CKD-EPI)NonAf (>60 ml/min/1.73 sqM) Glucose (74-99) mg/dL Plasma Lactic Acid Abel 1.0 (0.7-2.0) mmol/L Calcium (8.4-10.2) mg/dL Total Bilirubin (0.2-1.3) mg/dL AST (14-36) U/L ALT (4-34) U/L Alkaline Phosphatase (38-126) U/L Total Protein (6.3-8.2) g/dL Albumin (3.5-5.0) g/dL Urine Color Urine Appearance (Clear) Urine pH (5.0-8.0) Ur Specific Walden (1.001-1.035) Urine Protein (Negative) Urine Glucose (UA) (Negative) Urine Ketones (Negative) Urine Blood (Negative) Urine Nitrite (Negative) Urine Bilirubin (Negative) Urine Urobilinogen (<2.0) mg/dL Ur Leukocyte Esterase (Negative) Urine RBC (0-5) /hpf Urine WBC (0-5) /hpf Urine WBC Clumps (None) /hpf Ur Squamous Epith Cells (0-4) /hpf Urine Bacteria (None) /hpf Urine Mucus (None) /hpf Disposition Clinical Impression: UTI (urinary tract infection), Hx of renal cell cancer, Hematuria Disposition: HOME SELF-CARE Condition: Stable Instructions (If sedation given, give patient instructions): Urinary Tract Infection in Women (ED) Additional Instructions: Please take the medications as directed. Follow up with Dr. Hicks for reevaluation and to ensure that your urine specimen has cleared of infection. Return to the emergency room for any new or worsening symptoms Prescriptions: Cephalexin [Keflex] 500 mg PO BID 1 Days #14 cap Phenazopyridine [Pyridium] 200 mg PO TID #6 tablet Is patient prescribed a controlled substance at d/c from ED?: No Referrals: Ryan Barros MD [Primary Care Provider] - 1-2 days Kobi Hicks MD [STAFF PHYSICIAN] - 1-2 days Time of Disposition: 17:36
[2021-08-04 17:51] VITALS: BP 144/84; PULSE 100; RESP 16; TEMP 99.3
== END 2021-08-04 18:07 | disposition home or self-care (01) ==
LOC: EC 14:03
DX: N39.0 Urinary tract infection, site not specified (principal); I10 Essential (primary) hypertension; E78.5 Hyperlipidemia, unspecified; F41.9 Anxiety disorder, unspecified; Z79.899 Other long term (current) drug therapy; Z85.528 Personal history of other malignant neoplasm of kidney
CPT/HCPCS: 36415; 80053; 83605; 85025; 81001; 87086; 76770; 99284; 96374; J0696

== ENCOUNTER → 2022-05-02 | Outpatient (CLI) | payer MEDICARE ==
--- NOTE | 2022-05-02 14:19 | CT ---
EXAMINATION TYPE: CT abdomen wo/w con DATE OF EXAM: 05/02/2022 COMPARISON: 04/25/2021 HISTORY: f/u renal ca CT DLP: 1788.1 mGycm Automated exposure control for dose reduction was used. TECHNIQUE: Helical acquisition of images was performed from the lung bases through the top of iliac crest to include entire abdomen. CONTRAST: Performed with Oral Contrast and without and with IV Contrast, patient injected with 70cc mL of Isovu e 300. FINDINGS: Visualized lung bases are clear. There is a persistent small cyst in the posterior segment right lobe of liver. The pancreas, spleen and adrenal glands are normal. There is no retroperitoneal adenopathy or hemorrhage in the caliber abdominal aorta is normal. Apparently there has been resection of a mass in the inferior pole the right kidney. No renal masses are seen. The kidneys excrete contrast promptly and symmetrically and there is no hydronephrosis. The re are multiple parapelvic cysts of the left kidney and mild parapelvic cysts in the right kidney. No change in the small single nonobstructing renal calcifications bilaterally.. The bowel loops are normal in caliber is no evidence of obstruction. No inflammatory changes are iden tified in the bowel wall or mesentery. There is no free intraperitoneal air or fluid. No focal lytic or blastic bone abnormalities are seen. IMPRESSION: No significant abnormality seen with no interval change. There is no evidence of recurrent renal cell carcinoma. No change in single small nonobstructing renal calcifications bilaterally.
--- NOTE | 2022-05-02 14:25 | XR ---
EXAMINATION TYPE: XR chest 2V DATE OF EXAM: 05/02/2022 COMPARISON: 04/25/2021 HISTORY: Renal cell carcinoma TECHNIQUE: Frontal and lateral views of the chest are obtained. FINDINGS: There is no focal air space opacity, pleural effusion, or pneumothorax seen. The cardiac silhouette size is within normal limits. The osseous structures are intact. IMPRESSION: No acute cardiopulmonary process. No interval change.
== END | disposition home or self-care (01) ==
LOC: RADCTMAIN 13:00
PROVIDERS: ATTEND Urology
DX: C64.1 Malignant neoplasm of right kidney, except renal pelvis (principal)
CPT/HCPCS: 82565; 84520; 71046; 74170; 36415; Q9967

== ENCOUNTER → 2023-01-21 | Outpatient (CLI) | payer MEDICARE ==
--- NOTE | 2023-01-21 13:35 | FL ---
EXAMINATION TYPE: FL UGI w small bowel DATE OF EXAM: 01/21/2023 10:59 AM CLINICAL INDICATION:Female, 77 years old with history of K58.9 IRRITABLE BOWEL SYNDROME WITHOUT DIARR HEA; COMPARISON: Chest radiograph 05/02/2022, CT 05/02/2022. TECHNIQUE: The procedure was explained and patient history elicited. All patient questions were ans wered prior to start of procedure. A labor economics teacher radiograph of the abdomen was also reviewed. Multiple flu oroscopic spot images of the esophagus, stomach and duodenum were obtained following ingestion of liq uid barium and EZ-gas crystals. After the completion of the upper gastrointestinal examination, a detailed small bowel examination wa s performed. The patient was asked to ingest additional liquid barium and incremental frontal abdomi nal radiographs were then taken until contrast was visualized in the cecum. Fluoroscopic time: 2 minutes 33 seconds. Fluoroscopic images: 0 Radiographs taken: 39 DAP: Not Reported by machine. FINDINGS: Upper GI examination: The labor economics teacher abdominal radiograph demonstrates a normal bowel gas pattern without dilated loops of small or large bowel. There is no evidence for organomegaly or pneumoperitoneum. No abnormal calcificat ions. The visualized osseous structures are intact. The esophagus appears unremarkable without evidence of focal stricture, ulceration or abnormal outpou nirmala. No hiatal hernia was visualized. There was evidence of gastroesophageal during the examinati on. The stomach and duodenum demonstrate a normal course and contour. There is no evidence of focal gastric or duodenal ulceration, stricture, or abnormal outpouching. Tertiary contractions with the e sophagus were present. Contrast is seen extending from the duodenojejunal junction into the cecum after 1 hour, which is wit hin the expected time period. The small bowel follows normal distribution and contour without any ev idence of extraluminal or intraluminal irregularity. There is no displacement of bowel loops or extr aluminal extravasation of contrast material. Small bowel mucosal folds are felt to be within normal l imits. IMPRESSION: 1. Esophageal dysmotility. 2. Gastroesophageal reflux. 3. No hiatal hernia visualized. 4. Normal detailed small bowel.
== END | disposition home or self-care (01) ==
LOC: RADFLMAIN 08:59
PROVIDERS: ATTEND Internal Medicine Gastroenterology
DX: K21.9 Gastro-esophageal reflux disease without esophagitis (principal); K22.4 Dyskinesia of esophagus; K58.9 Irritable bowel syndrome, unspecified
CPT/HCPCS: 74240; 74248

== ENCOUNTER → 2023-08-26 | Outpatient (CLI) | payer MEDICARE ==
[2023-08-26 11:26] LABS: African American GFR (CKD) >90 (>60 ml/min/1.73 sqM); Blood Urea Nitrogen 15 mg/dL (7-17); Non-African American GFR(CKD) 81 (>60 ml/min/1.73 sqM)
--- NOTE | 2023-08-26 11:34 | XR ---
EXAMINATION TYPE: XR chest 2V DATE OF EXAM: 08/26/2023 COMPARISON: 05/02/2022 INDICATION: Kidney cancer TECHNIQUE: Frontal and lateral views of the chest are obtained. FINDINGS: The heart size is normal. The pulmonary vasculature is normal. The lungs are clear. No expansile osseous lesions evident. IMPRESSION: 1. No acute pulmonary process.
--- NOTE | 2023-08-27 11:13 | CT ---
EXAMINATION TYPE: CT abdomen wo/w con DATE OF EXAM: 08/26/2023 COMPARISON: 05/02/2022 HISTORY: 77-year-old female C6 4.1 kidney cancer KIDNEY CA TECHNIQUE: Contiguous axial scanning of the abdomen before and following administration of 100 ml Iso lisa 300 IV contrast. Delayed images through the kidneys and coronal/sagittal reconstructions perform ed. CT DLP: 1887.3 mGycm Automated exposure control for dose reduction was used. FINDINGS: The heart is normal size without pericardial effusion. Atelectasis or scarring in the lower lungs without pleural effusion. There is a small hiatal hernia. 1.4 cm hypodensity inferior right liver lobe remains unchanged, likely a small cyst. There is mildly diminished attenuation of the liver parenchyma suggesting mild fatty infiltration. Portal venous syst em is patent. No biliary ductal dilatation. Gallbladder, adrenal glands, and pancreas within normal limits. Small 2.0 cm hypodensity inferior spleen remains unchanged and is nonspecific. Stability suggests a b enign etiology. Postresection changes at the lower pole of the right kidney. No increasing nodularity or suspicious e nhancing mass is identified. Punctate 2 mm nonobstructive right renal calculus. Symmetric uptake and excretion of contrast from patricia th kidneys. No new suspicious renal mass is identified. Bilateral parapelvic cysts are redemonstrated measuring up to 2.9 cm. Moderate atherosclerotic calcifications infrarenal abdominal aorta without aneurysm. No dilated small bowel, free fluid, or free air. No mesenteric or retroperitoneal lymphadenopathy. Mi ld to moderate stool in the right side of the colon. Bones: Remains unchanged. Additional lower thoracic spine redemonstrated. Facet arthropathy mid to lo wer lumbar spine. IMPRESSION: 1. STABLE POST RESECTION CHANGES OF THE LOWER POLE OF THE RIGHT KIDNEY. NO EVIDENCE FOR LOCOREGIONAL RECURRENCE OR METASTATIC DISEASE IN THE ABDOMEN. 2. INCIDENTAL COLON HEPATIC STEATOSIS, SMALL HIATAL HERNIA, 2 MM NONOBSTRUCTIVE RIGHT RENAL CALCULUS, AND BILATERAL PARAPELVIC CYSTS IN THE KIDNEYS MEASURING UP TO 2.9 CM.
== END | disposition home or self-care (01) ==
LOC: RADCTMAIN 10:53
PROVIDERS: ATTEND Urology
DX: C64.1 Malignant neoplasm of right kidney, except renal pelvis (principal); K44.9 Diaphragmatic hernia without obstruction or gangrene; N20.0 Calculus of kidney; N28.1 Cyst of kidney, acquired
CPT/HCPCS: 82565; 84520; 71046; 74170; 36415; Q9967

== ENCOUNTER → 2024-10-11 | Outpatient (CLI) | payer MEDICARE ==
[2024-10-11 09:48] LABS: African American GFR (CKD) >90 (>60 ml/min/1.73 sqM); Blood Urea Nitrogen 19 mg/dL (7-17); Non-African American GFR(CKD) 79 (>60 ml/min/1.73 sqM)
--- NOTE | 2024-10-11 09:50 | XR ---
EXAMINATION TYPE: XR chest 2V DATE OF EXAM: 10/11/2024 9:19 AM COMPARISON: 08/26/2023 CLINICAL INDICATION: Female, 79 years old with history of C64.1 renal ca, TECHNIQUE: XR chest 2V view(s) obtained. FINDINGS: The heart size is normal. The pulmonary vasculature is normal. The lungs are clear. IMPRESSION: 1. No acute pulmonary process. 2. No suspicious changes to suggest metastatic disease. [facility], , 10/11/2024 9:48 AM
--- NOTE | 2024-10-11 11:43 | CT ---
EXAMINATION TYPE: CT abdomen wo/w con CT DLP: 1840.40 mGycm, Automated exposure control for dose reduction was used. DATE OF EXAM: 10/11/2024 10:22 AM COMPARISON: CT abdomen 08/26/2023, 05/02/2022, 04/25/2021, CT abdomen and pelvis 08/31/2020 CLINICAL INDICATION:Female, 79 years old with history of C64.1 renal ca; renal cancer TECHNIQUE: Multiphase CT of the abdomen before and after the uneventful administration of 100 mL of Isovue-370 intravenously oral contrast was administered.. Coronal and sagittal reformats were perform ed. FINDINGS: LOWER CHEST: Coronary artery calcifications. Bilateral lower lobe linear scarring. ABDOMEN LIVER: Stable posterior right hepatic lobe 1.7 cm hypodense lesion likely representing a cyst. GALLBLADDER AND BILE DUCTS: Unremarkable. PANCREAS: Unremarkable. SPLEEN: Stable nonspecific hypodense 2 cm lesion within the spleen. Stability suggests a benign etiol ogy. Possible hemangioma. ADRENAL GLANDS: Unremarkable. KIDNEYS AND URETERS: No evidence of hydronephrosis. Stable nonobstructive right renal 3 mm calculus. Postresection changes in the lower pole of the right kidney redemonstrated. No increased nodularity o r suspicious enhancing masses identified. No suspicious left renal mass. Bilateral peripelvic cysts r edemonstrated. STOMACH AND BOWEL: Small hiatal hernia, duodenum is unremarkable. Enteric contrast reaches the distal small bowel. No focal wall thickening or surrounding inflammatory changes. Moderate amount of stool within the right colon. No evidence of bowel obstruction. PERITONEUM: No evidence of pneumoperitoneum or free fluid. VASCULATURE: Mild to moderate atherosclerotic calcifications are present throughout the abdominal aor ta and its branches. No evidence of aortic aneurysm. MUSCULOSKELETAL: No acute osseous abnormalities. No aggressive osseous lesion. Stable superior endpla te compression deformity of the L1 vertebral body. Multilevel degenerative disc disease. LYMPH NODES: No evidence for lymphadenopathy. SOFT TISSUE/ABDOMINAL WALL: Unremarkable IMPRESSION: 1. Stable post resection changes of the lower pole of the right kidney redemonstrated. No evidence f or local recurrence or metastatic disease within the abdomen. 2. Nonobstructive right renal calculus. [facility], , 10/11/2024 11:41 AM
== END | disposition home or self-care (01) ==
LOC: RADCTMAIN 08:55
PROVIDERS: ATTEND Urology
DX: C64.1 Malignant neoplasm of right kidney, except renal pelvis (principal); N20.0 Calculus of kidney
CPT/HCPCS: 82565; 84520; 71046; 74170; 36415; Q9967